=== PATIENT | male | born 1960 | race Caucasian/White ===

== ENCOUNTER 2023-10-27 09:40 | Emergency (ER) | payer OTHER ==
[2023-10-27 09:50] VITALS: BP 125/67; PULSE 75; RESP 18; TEMP 97.8; BMI 25.0
[2023-10-27] MEDS ORDERED: SODIUM CHLORIDE 1,000 ML IV STA (12:48)
[2023-10-27] MEDS ORDERED: ACETAMINOPHEN 1000 MG/100 ML BAG IVPB ONE (12:48)
[2023-10-27] MEDS ORDERED: ACETAMINOPHEN INJECTION 100 ML IVPB ONE (12:56)
[2023-10-27 13:23] LABS: BASO % 0.5 % (0-2.0); EOS % 1.9 % (0-4.5); HEMATOCRIT 43.6 % (35.4-49); HEMOGLOBIN 14.4 GM/dL (11.7-16.9); LYMPH % 31.1 % (8-40); MCH 28.8 pg (25.7-33.7); MEAN CELL VOLUME 87.2 fl (80-96); MEAN PLT VOLUME 7.3 fl (7.5-11.1); MONO % 6.2 % (3.8-10.2); NEUT % 60.3 % (42.8-82.8); PLATELET COUNT 269 10^3/uL (134-434); RBC 4.99 M/mm3 (4.00-5.60); WHITE BLOOD COUNT 7.7 K/mm3 (4.0-10.0)
[2023-10-27 13:58] LABS: POTASSIUM 4.1 mmol/L (3.5-5.1)
[2023-10-27 14:00] LABS: BLOOD UREA NITROGEN 13.6 mg/dL (7-18); CALCIUM 9.5 mg/dL (8.5-10.1)
[2023-10-27 14:03] LABS: CREATININE 0.8 mg/dL (0.55-1.3)
[2023-10-27 14:05] LABS: BILIRUBIN,TOTAL 0.2 mg/dL (0.2-1); TOT PROT 6.7 g/dl (6.4-8.2)
[2023-10-27] MEDS ORDERED: KETOROLAC TROMETHAMINE 30 MG/1 ML VIAL IVPUSH ONE (14:39)
[2023-10-27] MEDS ORDERED: KETOROLAC TROMETHAMINE 30 MG/1 ML VIAL ONE (15:05)
== END 2023-10-27 16:31 | disposition home or self-care (01) ==
LOC: JER 09:40
PROC: 3E033NZ Introduction of Analgesics, Hypnotics, Sedatives into Peripheral Vein, Percutaneous Approach (ICD-10-PCS; principal; 2023-10-27)
PROC: 3E033GC Introduction of Other Therapeutic Substance into Peripheral Vein, Percutaneous Approach (ICD-10-PCS; 2023-10-27)
PROC: 3E0337Z Introduction of Electrolytic and Water Balance Substance into Peripheral Vein, Percutaneous Approach (ICD-10-PCS; 2023-10-27)
DX: R51.9 Headache, unspecified (principal); M54.9 Dorsalgia, unspecified
CPT/HCPCS: 36415; 70450-TC; 71045-TC-FY; 72125-TC; 72128-TC; 80053; 84550; 85025; 85045; 99285-25

== ENCOUNTER 2024-04-26 12:53 | Emergency (ER) | payer OTHER ==
[2024-04-26 13:01] VITALS: BP 115/72; PULSE 96; RESP 18; TEMP 98.1; BMI 23.6
[2024-04-26 15:28] LABS: HEMATOCRIT 37.6 % (35.4-49); HEMOGLOBIN 12.5 GM/dL (11.7-16.9); MCH 27.7 pg (25.7-33.7); MCHC 33.2 g/dl (32.0-35.9); MEAN CELL VOLUME 83.5 fl (80-96); MEAN PLT VOLUME 6.8 fl (7.5-11.1); PLATELET COUNT 324 10^3/uL (134-434); RBC 4.51 M/mm3 (4.00-5.60); RDW 14.3 % (11.9-15.9); WHITE BLOOD COUNT 10.9 K/mm3 (4.0-10.0)
[2024-04-26 15:46] LABS: ALBUMIN 3.5 g/dl (3.4-5.0); BLOOD UREA NITROGEN 9.4 mg/dL (7-18); CALCIUM 9.2 mg/dL (8.5-10.1)
[2024-04-26 15:48] LABS: CREATININE 0.7 mg/dL (0.55-1.3)
[2024-04-26 15:50] LABS: BILIRUBIN,TOTAL 0.4 mg/dL (0.2-1); TOT PROT 6.5 g/dl (6.4-8.2)
== END 2024-04-26 18:28 | disposition home or self-care (01) ==
LOC: JER 12:53
DX: M81.0 Age-related osteoporosis without current pathological fracture (principal); M25.552 Pain in left hip; G89.29 Other chronic pain; R53.1 Weakness; R52 Pain, unspecified
CPT/HCPCS: 36415; 73502-TC-LT-FY; 80053; 83655; 85027; 99284-25